=== PATIENT | male | born 1970 | race Caucasian/White ===

== ENCOUNTER 2021-04-25 14:19 | Emergency (ER) | payer OTHER ==
[~2021-04-25] VITALS: Ht 175.3 cm; Wt 118.8 kg
[2021-04-25 14:19] VITALS: BP_SYST 157
--- NOTE | 2021-04-25 14:40 | NUR ---
PT TO BED 3 FOR EVALUATION. REPORT GIVEN TO NEFTALI BLACKMON WHO WILL ASSUME CARE.
--- NOTE | 2021-04-25 14:43 | NUR ---
ER at bedside examining patient.
--- NOTE | 2021-04-25 14:45 | NUR ---
pt. came in with c/o pain to right arm 04/14. states broke arm last friday was seen at [facility]. office was told had a break arm was wrapped and no follow up. Pt. is here today for pain relief and concerned hand swollen. Noticable swelling to hand and bruising noted to visable part of forearm. Arm is wrapped in a soft cast. Good radial pulse.
[2021-04-25] MEDS ORDERED: HYDR-3927 PO (15:30)
[2021-04-25] MEDS ORDERED: IBUP-1971 PO (15:30)
[2021-04-25] MEDS: HYDROcodone/ACETAMIN 10-325 MG TAB PO ONE (16:03)
[2021-04-25] MEDS: IBUPROFEN 800 MG TABLET PO ONE (16:04)
[2021-04-25 16:09] VITALS: BP_SYST 135
--- NOTE | 2021-04-25 16:09 | NUR ---
Patient given written and verbal discharge instructions and verbalizes understanding. ER Dr. Rolle discussed with patient the results and treatment provided. Patient in stable condition. ID arm band removed. Rx of [place] and Motrin given. Patient educated on pain management and to follow up with PMD. Pain Scale 3. Opportunity for questions provided and answered. Medication side effect fact sheet provided.
== END 2021-04-25 16:09 | disposition home or self-care (01) ==
LOC: SED 14:19
DX: S42.401A Unspecified fracture of lower end of right humerus, initial encounter for closed fracture (principal); I10 Essential (primary) hypertension; Z79.899 Other long term (current) drug therapy; X58.XXXA Exposure to other specified factors, initial encounter; Y93.89 Activity, other specified; Y92.89 Other specified places as the place of occurrence of the external cause; Y99.0 Civilian activity done for income or pay
CPT/HCPCS: 99283